=== PATIENT | female | born 1970 | race Caucasian/White ===

== ENCOUNTER 2018-10-30 17:37 | Outpatient (REF) | payer MEDICAID, SELFPAY ==
[2018-10-30 20:20] LABS: Hemoglobin A1C 6.4 % (4.5-6.2)
[2018-10-30 20:30] LABS: ALT 56 U/L (12-78); AST 35 U/L (15-37); Albumin 4.2 g/dL (3.4-5.0); Alkaline Phosphatase 95 U/L (46-116); Anion Gap 7.3 mmol/L (3-11); BUN 11 mg/dL (7-18); Bilirubin, Total 0.2 mg/dL (0.2-1.0); CO2 30.7 mmol/L (21.0-32.0); CREATININE 0.84 mg/dL (0.55-1.02); Chloride 105 mmol/L (98-107); Cholesterol 255 mg/dL (50-200); Glucose 103 mg/dL (70-100); HDL Cholesterol 46 mg/dL (40-60); LDL CHOLESTEROL 180 mg/dL (<100); Potassium 4.8 mmol/L (3.5-5.1); Sodium 143 mmol/L (136-145); Total Protein 7.6 g/dL (6.4-8.2); Triglyceride 126 mg/dL (30-150)
== END 2018-10-30 17:57 ==
LOC: NCHCN 17:37
PROVIDERS: PCP Family Medicine; Visit Provider Registered Nurse
DX: I10 Essential (primary) hypertension (principal); E78.5 Hyperlipidemia, unspecified; E88.81 Metabolic syndrome and other insulin resistance
CPT/HCPCS: 80053; 80061; 83721; 83036

== ENCOUNTER 2019-05-21 17:43 | Outpatient (REF) | payer SELFPAY | END 2019-05-21 18:03 | LOC: NCHCN 17:43 | PROVIDERS: PCP Family Medicine; Visit Provider Family Medicine | DX: R10.9 Unspecified abdominal pain (principal) | CPT/HCPCS: 87086 ==

== ENCOUNTER 2020-08-21 20:24 | Outpatient (REF) | payer MEDICAID, SELFPAY ==
[2020-08-26 12:36] LABS: COVID-19 RT-PCR Result NEGATIVE (Negative)
== END 2020-08-21 20:44 ==
LOC: NCHCN 20:24
PROVIDERS: PCP Family Medicine; Visit Provider Family Medicine
DX: Z20.828 Contact with and (suspected) exposure to other viral communicable diseases (principal); R51.9 Headache, unspecified; J02.9 Acute pharyngitis, unspecified
CPT/HCPCS: U0003

== ENCOUNTER 2020-08-26 19:17 | Outpatient (REF) | payer MEDICAID, SELFPAY ==
[2020-08-28 14:48] LABS: COVID-19 RT-PCR UVMMC Result Negative (Negative)
== END 2020-08-26 19:37 ==
LOC: NCHCN 19:17
PROVIDERS: PCP Family Medicine; Visit Provider Family Medicine
DX: J06.9 Acute upper respiratory infection, unspecified (principal)
CPT/HCPCS: U0003

== ENCOUNTER 2021-02-12 16:59 | Outpatient (REF) | payer MEDICAID, SELFPAY ==
[2021-02-12 21:01] LABS: Hemoglobin A1C 6.2 % (<5.7)
[2021-02-12 21:26] LABS: Calculated LDL 177 mg/dL (<100); Cholesterol 256 mg/dL (<200); HDL Cholesterol 40 mg/dL (40-60); TSH (W/Ref FT4) 1.22 uIU/mL (0.36-3.74); Triglyceride 199 mg/dL (<150)
[2021-02-15 05:28] LABS: Vitamin D 25 Total 10.5 ng/mL (30-100)
== END 2021-02-12 17:00 | disposition home or self-care (01) ==
LOC: NCHCN 16:59
PROVIDERS: PCP Family Medicine; Visit Provider Family Medicine
DX: F31.30 Bipolar disorder, current episode depressed, mild or moderate severity, unspecified (principal); R73.03 Prediabetes; E55.9 Vitamin D deficiency, unspecified; E88.81 Metabolic syndrome and other insulin resistance
CPT/HCPCS: 80061; 82306; 83036; 84443

== ENCOUNTER 2021-02-26 12:18 | Outpatient (REF) | payer MEDICAID, SELFPAY ==
[2021-03-02 12:55] LABS: Lamotrigine 2.1 mcg/mL (2.5 - 15.0)
== END 2021-02-26 12:19 | disposition home or self-care (01) ==
LOC: NCHCN 12:18
PROVIDERS: PCP Family Medicine; Visit Provider Family Medicine
DX: F31.30 Bipolar disorder, current episode depressed, mild or moderate severity, unspecified (principal); Z51.81 Encounter for therapeutic drug level monitoring
CPT/HCPCS: 80175

== ENCOUNTER 2021-07-15 22:09 | Outpatient (REF) | payer MEDICAID, SELFPAY ==
[2021-07-17 09:26] LABS: COVID-19 RT-PCR UVMMC Result Negative (Negative)
== END 2021-07-15 22:10 | disposition home or self-care (01) ==
LOC: NCHCN 22:09
PROVIDERS: PCP Family Medicine; Visit Provider Nurse Practitioner Family
DX: Z20.822 Contact with and (suspected) exposure to COVID-19 (principal); J06.9 Acute upper respiratory infection, unspecified
CPT/HCPCS: U0003

== ENCOUNTER 2022-10-06 15:04 | Outpatient (REF) | payer MEDICAID, SELFPAY ==
[2022-10-06 21:21] LABS: ALT 80 U/L (14-59); AST 48 U/L (15-37); Alkaline Phosphatase 102 U/L (46-116); Anion Gap 9.4 mmol/L (3-11); BUN 9 mg/dL (7-18); Bilirubin, Total 0.3 mg/dL (0.2-1.0); CO2 27.6 mmol/L (21.0-32.0); CREATININE 0.9 mg/dL (0.55-1.02); Calcium 10.7 mg/dL (8.5-10.1); Calculated LDL 227 mg/dL (<100); Chloride 102 mmol/L (98-107); Cholesterol 295 mg/dL (<200); Estimated GFR 76.92 (mL/min/1.73m2); Glucose 93 mg/dL (74-106); HDL Cholesterol 47 mg/dL (40-60); Potassium 4.8 mmol/L (3.5-5.1); Sodium 139 mmol/L (136-145); Total Protein 8.5 g/dL (6.4-8.2); Triglyceride 105 mg/dL (<150)
[2022-10-06 21:41] LABS: Vitamin D 25 Total 19.2 ng/mL (30-100)
[2022-10-08 17:08] LABS: Lamotrigine 2.3 mcg/mL (3.0-15.0)
== END 2022-10-06 15:05 | disposition home or self-care (01) ==
LOC: NCHCN 15:04
PROVIDERS: PCP Family Medicine; Visit Provider Family Medicine
DX: E78.5 Hyperlipidemia, unspecified (principal); R73.03 Prediabetes; E88.81 Metabolic syndrome and other insulin resistance; F31.30 Bipolar disorder, current episode depressed, mild or moderate severity, unspecified; Z51.81 Encounter for therapeutic drug level monitoring; Z79.899 Other long term (current) drug therapy; E55.9 Vitamin D deficiency, unspecified
CPT/HCPCS: 80053; 80061; 80175; 82306

== ENCOUNTER 2023-04-21 18:27 | Outpatient (REF) | payer MEDICAID, SELFPAY ==
[2023-04-21 21:43] LABS: ALT 43 U/L (14-59); AST 27 U/L (15-37); Albumin 4.5 g/dL (3.4-5.0); Alkaline Phosphatase 102 U/L (46-116); Anion Gap 8.7 mmol/L (3-11); BUN 13 mg/dL (7-18); Bilirubin, Total 0.4 mg/dL (0.2-1.0); CO2 25.3 mmol/L (21.0-32.0); CREATININE 0.9 mg/dL (0.55-1.02); Calcium 9.9 mg/dL (8.5-10.1); Calculated LDL 180 mg/dL (<100); Chloride 101 mmol/L (98-107); Cholesterol 243 mg/dL (<200); Estimated GFR 76.92 (mL/min/1.73m2); Glucose 93 mg/dL (74-106); HDL Cholesterol 46 mg/dL (40-60); Potassium 4.6 mmol/L (3.5-5.1); Sodium 135 mmol/L (136-145); TSH (W/Ref FT4) 1.04 uIU/mL (0.36-3.74); Total Protein 7.8 g/dL (6.4-8.2); Triglyceride 89 mg/dL (<150)
[2023-04-21 21:55] LABS: Vitamin D 25 Total 29.7 ng/mL (30-100)
[2023-04-24 09:25] LABS: FSH 118.3 mIU/mL (See Note)
== END 2023-04-21 18:28 | disposition home or self-care (01) ==
LOC: NCHCN 18:27
PROVIDERS: PCP Family Medicine; Visit Provider Family Medicine
DX: E78.5 Hyperlipidemia, unspecified (principal); I10 Essential (primary) hypertension; N95.1 Menopausal and female climacteric states; E55.9 Vitamin D deficiency, unspecified
CPT/HCPCS: 80053; 80061; 82306; 83001; 84443

== ENCOUNTER 2023-10-24 12:22 | Outpatient (REF) | payer MEDICAID, SELFPAY | END 2023-10-24 12:23 | disposition home or self-care (01) | LOC: NCHCN 12:22 | PROVIDERS: PCP Family Medicine; Visit Provider Family Medicine | DX: R30.0 Dysuria (principal) | CPT/HCPCS: 87077; 87086; 87186 ==

== ENCOUNTER 2023-11-09 15:42 | Outpatient (REF) | payer MEDICAID, SELFPAY ==
[2023-11-09 21:23] LABS: Abs Immature Grans 0.02 10^3/uL (0.0-0.06); Absolute Basophil Count 0.08 10^3/uL (0.0-0.2); Absolute Eosinophil Count 0.25 10^3/uL (0.0-0.7); Absolute Lymphocyte Count 3.43 10^3/uL (1.2-3.4); Absolute Monocyte Count 0.94 10^3/uL (0.1-0.8); Absolute Neutrophil Count 4.45 10^3/uL (1.2-6.7); Basophils % 0.9; Eosinophils % 2.7; HCT 42.7 % (36.0-46.0); HGB 13.8 g/dL (11.2-15.7); Immature Grans % 0.2; Lymphocytes % 37.4; MCH 29.1 pg (27.0-33.0); MCHC 32.3 % (32.0-36.0); MCV 90 fL (80-95); MPV 9.7 fL (8.0-11.0); Monocytes % 10.3; Neutrophils % 48.5; Platelet Count 344 10^3/uL (130-400); RBC 4.75 10^6/uL (3.93-5.22); RDW 13.4 % (11.7-14.6); RDW-SD 44.5 fL; WBC 9.17 10^3/uL (4.4-10.8)
[2023-11-09 21:32] LABS: ALT 37 U/L (14-59); AST 37 U/L (15-37); Alkaline Phosphatase 91 U/L (46-116); Anion Gap 12.1 mmol/L (3-11); BUN 11 mg/dL (7-18); Bilirubin, Total 0.4 mg/dL (0.2-1.0); CO2 20.9 mmol/L (21.0-32.0); CREATININE 0.8 mg/dL (0.55-1.02); Calcium 9.5 mg/dL (8.5-10.1); Chloride 105 mmol/L (98-107); Estimated GFR 88.05 (mL/min/1.73m2); Glucose 85 mg/dL (74-106); Potassium 4.4 mmol/L (3.5-5.1); Sodium 138 mmol/L (136-145); Total Protein 7.1 g/dL (6.4-8.2)
[2023-11-09 21:36] LABS: Bacteria Moderate HPF (Negative); C & S Indicated? C&S Done As Ordered; Casts Negative LPF (Negative); Crystals Mod Calcium Oxalate HPF (Negative); Epithelial Cells Many HPF (Negative); Mucus Heavy (Negative); RBC 0-2 HPF (0-2)
== END 2023-11-09 15:43 | disposition home or self-care (01) ==
LOC: NCHCN 15:42
PROVIDERS: PCP Family Medicine; Visit Provider Internal Medicine
DX: R10.13 Epigastric pain (principal); R30.0 Dysuria
CPT/HCPCS: 80053; 81015; 85025; 87086